=== PATIENT | male | born 1985 | race Caucasian/White ===

== ENCOUNTER 2024-06-28 06:15 | Day surgery (SDC) | payer BC, SELFPAY | END 2024-06-28 09:35 | disposition home or self-care (01) | LOC: GI 06:15 | PROVIDERS: ATTENDING PHYSICIAN Surgery; FAMILY PHYSICIAN Family Medicine | DX: Z12.11 Encounter for screening for malignant neoplasm of colon (principal); K57.30 Diverticulosis of large intestine without perforation or abscess without bleeding; K63.89 Other specified diseases of intestine; Z86.0101 Personal history of adenomatous and serrated colon polyps | CPT/HCPCS: G0105 ==